=== PATIENT | female | born 1960 | race American Indian/Alaskan Native ===

== ENCOUNTER 2019-03-16 12:28 | Inpatient (IN) | payer MEDICARE ==
[2019-03-16] MEDS ORDERED: DEXTROSE 50% IN WATER (25GM) 50 ML SYRINGE IV PRN (13:25)
[2019-03-16] MEDS ORDERED: methylPREDNISolone Sod Succinate 125 MG/2 ML INJ IV ONE (15:00)
[2019-03-16 15:37] LABS: Basophils % (Auto) 0.3 % (0.0-1.8); Eosinophils # (Auto) 0.1 K/mm3 (0.0-0.4); Eosinophils % (Auto) 1.3 % (0.0-4.3); Hematocrit 24.3 % (30.3-42.9); Hemoglobin 7.4 gm/dl (10.1-14.3); Lymphocytes # (Auto) 0.8 K/mm3 (1.2-5.4); Lymphocytes % (Auto) 11.6 % (13.4-35.0); Mean Corpuscular HGB Conc 30 % (30-34); Mean Corpuscular Volume 77 fl (79-97); Monocytes # (Auto) 0.5 K/mm3 (0.0-0.8); Monocytes % (Auto) 8.2 % (0.0-7.3); Platelet Count 277 K/mm3 (140-440); Red Blood Count 3.17 M/mm3 (3.65-5.03)
[2019-03-16 15:38] LABS: Red Cell Distribution Width 20.5 % (13.2-15.2)
[2019-03-16 15:59] LABS: Albumin 2.7 g/dL (3.9-5); BUN/Creatinine Ratio 14; Blood Urea Nitrogen 10 mg/dL (7-17); Calcium 8.7 mg/dL (8.4-10.2); Hemolysis Index 13
[2019-03-16 16:06] LABS: Alanine Aminotransferase < 5 units/L (7-56)
[2019-03-16] MEDS: MORPHINE 30 MG ER TAB PO SCH ×2 (16:07→21:37)
[2019-03-16] MEDS: HYDROmorphone 1 MG/1 ML INJ IV PRN ×2 (16:12→20:16)
[2019-03-16 16:20] LABS: INR 8.32 (0.87-1.13)
[2019-03-16] MEDS ORDERED: WARFARIN 2.5 MG TAB PO SCH (17:00)
[2019-03-16] MEDS ORDERED: WARFARIN 10 MG TAB PO SCH (17:00)
[2019-03-16] MEDS ORDERED: WARFARIN NO DOSE TODAY PO ONE (17:00)
[2019-03-16] MEDS: INSULIN REGULAR, HUMAN 100 UNITS/1 ML SUB-Q SCH ×2 (17:01→21:33)
[2019-03-16] MEDS: MAGIC MOUTHWASH 30ML PO SCH ×2 (17:01→21:33)
[2019-03-16] MEDS: D5W/0.45% NACL 1,000 ML IV SCH (17:02)
--- NOTE | 2019-03-16 19:35 | Cat Scan Report ---
CT abdomen pelvis wo con INDICATION: PELVIC PAIN. TECHNIQUE: All CT scans at this location are performed using CT dose reduction for ALARA by means of automated e xposure control. COMPARISON: 06/04/2015 FINDINGS: Lung bases are clear of acute disease. Moderate-sized hiatal hernia. Cholecystectomy. Liver, spleen, pancreas, kidneys and adrenals are grossly negative on this noncontrast exam. IVC filter in position. Abdominal aorta is normal in size. No adenopathy. Pelvis Urinary bladder and distal ureters are negative. Uterus is absent. 2.3 cm left ovarian cyst. No free fluid. IMPRESSION: 1. 2.3 cm left ovarian cyst. 2. Otherwise, no acute abnormalities. Signer Name: Rosendo Rowell MD Signed: 03/16/2019 7:31 PM Workstation Name: [id number]
--- NOTE | 2019-03-16 21:12 | History and Physical Report ---
History of Present Illness Date of examination: 03/16/19 Date of admission: 03/16/19 13:56 Chief complaint: Generalized fatigue, intractable pain, Lupus flare. History of present illness: Patient presented to the office , with CC of generalized weakness, diffuse joint pains, in part, due to SLE flare up.Due to the fact, that patient was too weak, to manage this at home, she is now admitted to the hospital, for sxs management/control.She will get hydration, pain control, steroid.patient was on coumadin, for hx of DVT, and INR today, is overtherapeutic, and will be reversed with Vit k, or FFP. Past History Past Medical History: anemia, arthritis, other (LUPUS.) Social history: no significant social history, , lives with family Family history: no significant family history Medications and Allergies Allergies Allergy/AdvReac Type Severity Reaction Status Date / Time Penicillins Allergy Severe Shortness Verified 06/11/15 12:54 of Breath codeine Allergy Unknown Verified 06/11/15 12:54 shellfish derived Allergy Unknown Verified 06/11/15 12:54 Home Medications Medication Instructions Recorded Confirmed Last Taken Type Hydroxychloroquine [Plaquenil] 200 mg PO BID 01/13/13 01/15/18 01/14/18 History Metoprolol [Lopressor TAB] 100 mg PO BID 01/13/13 01/15/18 01/14/18 History Sertraline [Zoloft] 100 mg PO QDAY 01/13/13 01/15/18 01/14/18 History hydroCHLOROthiazide [HCTZ] 12.5 mg PO QDAY 01/13/13 01/15/18 01/14/18 History Pantoprazole [Protonix TAB] 40 mg PO QDAY 05/21/13 01/15/18 01/14/18 History Potassium Chloride [K-Dur] 10 meq PO DAILY 05/21/13 01/15/18 01/14/18 History Metoclopramide [Reglan TAB] 10 mg PO TID #60 tablet 09/04/13 01/15/18 01/14/18 Rx Gabapentin [Gralise] 300 mg PO TID 06/03/15 01/15/18 01/14/18 History Morphine ER [Ms Contin ER] 30 mg PO BID 06/03/15 01/15/18 01/14/18 History Oxycodone HCl/Acetaminophen 10 mg PO Q6H PRN 06/03/15 01/15/18 01/14/18 History [Percocet 10/325 mg] Ondansetron [Zofran Odt] 4 mg PO Q8H PRN #10 tab.rapdis 11/08/15 01/15/18 01/14/18 Rx oxyCODONE /ACETAMINOPHEN [Percocet 1 tab PO Q6HR PRN #20 tablet 03/16/16 01/15/18 01/14/18 Rx 5/325] predniSONE [Deltasone] 15 mg PO DAILY 08/29/16 01/15/18 01/14/18 History Warfarin [Coumadin] 5 mg PO QDAY 08/30/16 01/15/18 01/14/18 History Oxycodone HCl/Acetaminophen 1 each PO Q6HR PRN #60 tablet 09/05/16 01/15/18 01/14/18 Rx [Percocet 10/325 mg] Active Meds: Active Medications Dextrose (D50w (25gm) Syringe) 50 ml IV Q30MIN PRN; Protocol PRN Reason: Hypoglycemia Folic Acid (Folvite) 1 mg PO QDAY [facility] Hydromorphone HCl (Dilaudid) 2 mg IV Q4H PRN PRN Reason: Pain , Severe (7-10) Hydroxychloroquine Sulfate (Plaquenil) 200 mg PO BID [facility] Dextrose/Sodium Chloride (D5/0.45ns) 1,000 mls @ 125 mls/hr IV DIRECT [facility] Last Admin: 03/16/19 17:02 Dose: 125 mls/hr Documented by: Insulin Human Regular (Humulin R) 0 units SUB-Q ACHS [facility]; Protocol Last Admin: 03/16/19 17:01 Dose: Not Given Documented by: Lidocaine HCl (Magic Mouthwash) 5 ml PO TID [facility] Last Admin: 03/16/19 17:01 Dose: Not Given Documented by: Methylprednisolone Sodium Succinate (Solu-Medrol) 40 mg IV Q8HR [facility] Metoclopramide HCl (Reglan) 10 mg PO TID [facility] Miscellaneous Medication (Gabapentin [Gralise]) 300 mg PO TID [facility] Morphine Sulfate (Ms Contin Er) 30 mg PO Q12HR [facility] Last Admin: 03/16/19 16:07 Dose: Not Given Documented by: Pantoprazole Sodium (Protonix) 40 mg PO QDAY [facility] Sertraline HCl (Zoloft) 100 mg PO QDAY [facility] Sodium Chloride (Sodium Chloride Flush Syringe 10 Ml) 10 ml IV BID [facility] Sodium Chloride (Sodium Chloride Flush Syringe 10 Ml) 10 ml IV PRN PRN PRN Reason: LINE FLUSH Review of Systems Constitutional: weight loss, fatigue, weakness, poor appetite, chronic pain Breasts: deferred Psychiatric: anxiety, insomnia, depression Exam - Constitutional Vitals: Temp Pulse Resp BP Pulse Ox 98.3 F 80 19 113/76 96 03/16/19 16:31 03/16/19 16:31 03/16/19 16:31 03/16/19 16:31 03/16/19 16:31 General appearance: Present: mild distress, cachectic - EENT Eyes: Present: PERRL ENT: hearing intact, clear oral mucosa - Neck Neck: Present: supple, normal ROM - Respiratory Respiratory effort: normal Respiratory: bilateral: CTA - Cardiovascular Heart Sounds: Present: S1 & S2. Absent: rub, click - Extremities Extremities: pulses symmetrical, No edema Peripheral Pulses: within normal limits - Abdominal General gastrointestinal: Present: soft, non-tender, non-distended, normal bowel sounds Female genitourinary: Present: deferred - Rectal Rectal Exam: deferred - Integumentary Integumentary: Present: clear, warm, dry - Musculoskeletal Musculoskeletal: gait normal, strength equal bilaterally - Psychiatric Psychiatric: appropriate mood/affect, intact judgment & insight - Neurologic Neurologic: CNII-XII intact, moves all extremities Results - Labs CBC & Chem 7: 03/16/19 15:08 03/16/19 15:08 Labs: Abnormal lab results 03/16/19 03/16/19 03/16/19 Range/Units 15:08 15:08 15:08 RBC 3.17 L (3.65-5.03) M/mm3 Hgb 7.4 L (10.1-14.3) gm/dl Hct 24.3 L (30.3-42.9) % MCV 77 L (79-97) fl MCH 23 L (28-32) pg RDW 20.5 H (13.2-15.2) % Lymph % (Auto) 11.6 L (13.4-35.0) % [place] % (Auto) 8.2 H (0.0-7.3) % Lymph # 0.8 L (1.2-5.4) K/mm3 Seg Neutrophils % 78.6 H (40.0-70.0) % PT 71.0 H (12.2-14.9) Sec. INR 8.32 H* (0.87-1.13) Chloride 107.4 H (98-107) mmol/L ALT < 5 L (7-56) units/L Albumin 2.7 L (3.9-5) g/dL Assessment and Plan - Patient Problems (1) Chronic pain syndrome Current Visit: No Status: Chronic Plan to address problem: pain control. (2) Exacerbation of systemic lupus erythematosus Current Visit: No Status: Acute Plan to address problem: pulse steroid use. 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 (4) Coumadin toxicity Current Visit: Yes Status: Acute Plan to address problem: will reverse.
[2019-03-16] MEDS: methylPREDNISolone Sod Succinate 40 MG/1 ML INJ IV SCH (21:33)
[2019-03-16] MEDS: HYDROXYCHLOROQUINE 200 MG TAB PO SCH (21:33)
[2019-03-16] MEDS ORDERED: DEXTROSE 5% IV ONE (22:00)
[2019-03-16] MEDS ORDERED: WATER SUB-Q ONE (22:00)
[2019-03-16] MEDS ORDERED: DEXTROSE 5% SUB-Q ONE (22:00)
[2019-03-16] MEDS ORDERED: WATER IV ONE (22:00)
[2019-03-16] MEDS ORDERED: PHYTONADIONE SUB-Q ONE (22:00)
[2019-03-16] MEDS ORDERED: PHYTONADIONE 10 MG/1 ML (ADULT ONLY)*INJECTION SUB-Q ONE (22:00)
[2019-03-16] MEDS ORDERED: PHYTONADIONE IV ONE (22:00)
[2019-03-17] MEDS: HYDROmorphone 2 MG/1 ML INJ IV PRN ×5 (01:24→22:15)
[2019-03-17] MEDS: D5W/0.45% NACL 1,000 ML IV SCH ×3 (03:30→20:41)
[2019-03-17] MEDS: methylPREDNISolone Sod Succinate 40 MG/1 ML INJ IV SCH ×3 (05:56→21:11)
[2019-03-17] MEDS: INSULIN REGULAR, HUMAN 100 UNITS/1 ML SUB-Q SCH ×4 (08:57→22:16)
[2019-03-17] MEDS: GABAPENTIN 300 MG CAP PO SCH ×3 (08:57→20:43)
[2019-03-17] MEDS: METOCLOPRAMIDE 10 MG TAB PO SCH ×3 (08:57→20:43)
[2019-03-17] MEDS: MAGIC MOUTHWASH 30ML PO SCH ×3 (08:58→20:42)
[2019-03-17 09:01] LABS: INR 1.7 (0.87-1.13)
[2019-03-17] MEDS: FOLIC ACID 1 MG TAB PO SCH (09:17)
[2019-03-17] MEDS: SERTRALINE 100 MG TAB PO SCH (09:17)
[2019-03-17] MEDS: MORPHINE 30 MG ER TAB PO SCH ×2 (09:17→21:11)
[2019-03-17] MEDS: HYDROXYCHLOROQUINE 200 MG TAB PO SCH ×2 (09:18→21:11)
[2019-03-17] MEDS: PANTOPRAZOLE 40 MG TAB PO SCH (09:18)
--- NOTE | 2019-03-17 19:57 | Progress Note ---
Assessment and Plan - Patient Problems (1) Chronic pain syndrome Current Visit: No Status: Chronic Plan to address problem: pain control. (2) Exacerbation of systemic lupus erythematosus Current Visit: Yes Status: Acute Plan to address problem: pulse steroid use. (3) Gastroparesis diabeticorum Current Visit: Yes Status: Chronic Plan to address problem: supportive. (4) Coumadin toxicity Current Visit: Yes Status: Acute Plan to address problem: will reverse. reversed. (5) Cachexia Current Visit: Yes Status: Acute Plan to address problem: with protien calore malnurishment, present on admission, and will continue with support. Subjective Date of service: 03/17/19 Principal diagnosis: Dehydration/generalized weakness,poor nutrition. Interval history: Patient seen/examined, resting in bed, labs reviewed, case d/w patient.Will continue with current management. Objective - Constitutional Vitals: Vital Signs - 12hr 03/17/19 03/17/19 03/17/19 10:00 11:51 16:47 Temperature 98.3 F 98.4 F Pulse Rate 64 75 Respiratory 18 18 Rate Blood Pressure 111/70 117/76 O2 Sat by Pulse 96 95 94 Oximetry General appearance: Present: mild distress, cachectic, other (protien calore malnurishment with cachectia, present on admission.) - EENT Eyes: PERRL, EOM intact ENT: hearing intact, clear oral mucosa Ears: bilateral: normal - Neck Neck: supple, normal ROM - Respiratory Respiratory effort: normal Respiratory: bilateral: CTA - Breasts Breasts: deferred - Cardiovascular Rhythm: regular Heart Sounds: Present: S1 & S2. Absent: gallop, rub Extremities: pulses intact, No edema, normal color, Full ROM - Gastrointestinal General gastrointestinal: Present: soft, non-tender, non-distended, normal bowel sounds Rectal Exam: deferred - Genitourinary Female genitourinary: deferred - Integumentary Integumentary: clear, warm, dry - Musculoskeletal Musculoskeletal: 1, strength equal bilaterally - Neurologic Neurologic: moves all extremities - Psychiatric Psychiatric: memory intact, appropriate mood/affect, intact judgment & insight - Labs CBC & Chem 7: 03/16/19 15:08 03/16/19 15:08 Labs: Abnormal lab results 03/16/19 03/17/19 03/17/19 Range/Units 21:19 06:00 06:00 PT 20.3 H (12.2-14.9) Sec. INR 1.70 H (0.87-1.13) POC Glucose 172 H (70-105) Iron 14 L (37-170) ug/dL 03/17/19 03/17/19 03/17/19 Range/Units 07:36 11:47 16:39 PT (12.2-14.9) Sec. INR (0.87-1.13) POC Glucose 253 H 165 H 172 H (70-105) Iron (37-170) ug/dL
[2019-03-18] MEDS: HYDROmorphone 2 MG/1 ML INJ IV PRN ×5 (04:01→22:45)
[2019-03-18] MEDS: D5W/0.45% NACL 1,000 ML IV SCH (04:01)
[2019-03-18] MEDS: methylPREDNISolone Sod Succinate 40 MG/1 ML INJ IV SCH ×3 (06:01→21:04)
[2019-03-18] MEDS: INSULIN REGULAR, HUMAN 100 UNITS/1 ML SUB-Q SCH ×4 (08:54→22:46)
[2019-03-18] MEDS: GABAPENTIN 300 MG CAP PO SCH ×3 (08:59→21:03)
[2019-03-18] MEDS: MAGIC MOUTHWASH 30ML PO SCH ×3 (09:00→22:45)
[2019-03-18] MEDS: METOCLOPRAMIDE 10 MG TAB PO SCH ×3 (09:00→21:03)
[2019-03-18 09:49] LABS: INR 1.44 (0.87-1.13)
[2019-03-18] MEDS: SERTRALINE 100 MG TAB PO SCH (12:42)
[2019-03-18] MEDS: PANTOPRAZOLE 40 MG TAB PO SCH (12:42)
[2019-03-18] MEDS: MORPHINE 30 MG ER TAB PO SCH ×2 (12:43→21:04)
[2019-03-18] MEDS: HYDROXYCHLOROQUINE 200 MG TAB PO SCH ×2 (12:43→21:03)
[2019-03-18] MEDS: FOLIC ACID 1 MG TAB PO SCH (12:50)
[2019-03-18] MEDS ORDERED: WARFARIN 2.5 MG TAB PO SCH (17:00)
[2019-03-18] MEDS ORDERED: WARFARIN 2 MG TAB PO SCH (17:00)
[2019-03-18] MEDS ORDERED: WARFARIN 5 MG TAB PO SCH (17:00)
--- NOTE | 2019-03-18 19:52 | Progress Note ---
Assessment and Plan - Patient Problems (1) Chronic pain syndrome Current Visit: No Status: Chronic Plan to address problem: pain control. (2) Exacerbation of systemic lupus erythematosus Current Visit: Yes Status: Acute Plan to address problem: pulse steroid use. (3) Gastroparesis diabeticorum Current Visit: Yes Status: Chronic Plan to address problem: supportive. (4) Coumadin toxicity Current Visit: Yes Status: Acute Plan to address problem: will reverse. reversed. (5) Cachexia Current Visit: Yes Status: Acute Plan to address problem: with gennaro grossmane malnurishment, present on admission, and will continue with support. Subjective Date of service: 03/18/19 Principal diagnosis: Dehydration/generalized weakness,poor nutrition. Interval history: Patient seen/examined, resting in bed, labs reviewed, case d/w patient.Will continue with current management. Patient seen/examined, resting in bed,, still in pain, and weakness. Objective - Constitutional Vitals: Vital Signs - 12hr 03/18/19 03/18/19 08:38 11:01 Temperature 97.3 F L Pulse Rate 63 Respiratory 20 Rate Blood Pressure 111/71 O2 Sat by Pulse 94 95 Oximetry General appearance: Present: mild distress, cachectic - EENT Eyes: PERRL, EOM intact ENT: hearing intact, clear oral mucosa Ears: bilateral: normal - Neck Neck: supple, normal ROM - Respiratory Respiratory effort: normal Respiratory: bilateral: CTA - Breasts Breasts: deferred - Cardiovascular Rhythm: regular Heart Sounds: Present: S1 & S2. Absent: gallop, rub Extremities: pulses intact, No edema, normal color, Full ROM - Gastrointestinal General gastrointestinal: Present: soft, non-tender, non-distended, normal bowel sounds Rectal Exam: deferred - Genitourinary Female genitourinary: deferred - Integumentary Integumentary: clear, warm, dry - Musculoskeletal Musculoskeletal: 1, strength equal bilaterally - Neurologic Neurologic: moves all extremities - Psychiatric Psychiatric: memory intact, appropriate mood/affect, intact judgment & insight - Labs CBC & Chem 7: 03/16/19 15:08 03/16/19 15:08 Labs: Abnormal lab results 03/17/19 03/18/19 03/18/19 Range/Units 21:34 08:20 09:14 PT 17.8 H (12.2-14.9) Sec. INR 1.44 H (0.87-1.13) POC Glucose 237 H 404 H (70-105) 03/18/19 03/18/19 Range/Units 11:21 16:57 PT (12.2-14.9) Sec. INR (0.87-1.13) POC Glucose 163 H 182 H (70-105)
[2019-03-18] MEDS: SODIUM CHLORIDE 0.45% 1000 ML 1,000 ML IV SCH (22:46)
[2019-03-19] MEDS: HYDROmorphone 2 MG/1 ML INJ IV PRN ×5 (03:31→19:50)
[2019-03-19] MEDS: SODIUM CHLORIDE 0.45% 1000 ML 1,000 ML IV SCH ×3 (05:48→21:26)
[2019-03-19] MEDS: methylPREDNISolone Sod Succinate 40 MG/1 ML INJ IV SCH ×3 (05:48→21:29)
[2019-03-19 06:40] LABS: INR 2.16 (0.87-1.13)
[2019-03-19] MEDS: INSULIN REGULAR, HUMAN 100 UNITS/1 ML SUB-Q SCH ×4 (08:13→22:56)
[2019-03-19] MEDS: METOCLOPRAMIDE 10 MG TAB PO SCH ×3 (08:28→19:55)
[2019-03-19] MEDS: GABAPENTIN 300 MG CAP PO SCH ×3 (08:28→19:54)
[2019-03-19] MEDS: MAGIC MOUTHWASH 30ML PO SCH ×3 (08:28→19:55)
[2019-03-19] MEDS: PANTOPRAZOLE 40 MG TAB PO SCH (10:04)
[2019-03-19] MEDS: HYDROXYCHLOROQUINE 200 MG TAB PO SCH ×2 (10:05→21:29)
[2019-03-19] MEDS: FOLIC ACID 1 MG TAB PO SCH (10:05)
[2019-03-19] MEDS: MORPHINE 30 MG ER TAB PO SCH ×2 (10:05→21:28)
[2019-03-19] MEDS: SERTRALINE 100 MG TAB PO SCH (10:05)
[2019-03-19] MEDS ORDERED: WARFARIN 2.5 MG TAB PO SCH (17:00)
--- NOTE | 2019-03-19 21:47 | Progress Note ---
Assessment and Plan - Patient Problems (1) Chronic pain syndrome Current Visit: No Status: Chronic Plan to address problem: pain control. (2) Exacerbation of systemic lupus erythematosus Current Visit: Yes Status: Acute Plan to address problem: pulse steroid use. (3) Gastroparesis diabeticorum Current Visit: Yes Status: Chronic Plan to address problem: supportive. (4) Coumadin toxicity Current Visit: Yes Status: Acute Plan to address problem: will reverse. reversed. (5) Cachexia Current Visit: Yes Status: Acute Plan to address problem: with protien calore malnurishment, present on admission, and will continue with support. Subjective Date of service: 03/19/19 Principal diagnosis: Dehydration/generalized weakness,poor nutrition. Interval history: Patient seen/examined, resting in bed, labs reviewed, case d/w patient.Will continue with current management. Patient seen/examined, resting in bed,, still in pain, and weakness. patient seen/examined, resting in bed, records reviewed, case d/w patient. Ct of the abd/pelvics with ovarian cystic lesion.patient c/o slight improvement , overall.will continue , with current management , for couple more days, and jadiel down steroid, as she prepares to go home. Objective - Constitutional Vitals: Vital Signs - 12hr 03/19/19 03/19/19 03/19/19 11:37 17:25 21:33 Temperature 98.3 F 98.3 F Pulse Rate 65 70 Respiratory 22 22 Rate Blood Pressure 127/81 107/69 O2 Sat by Pulse 94 95 95 Oximetry General appearance: Present: mild distress, cachectic - EENT Eyes: PERRL, EOM intact ENT: hearing intact, clear oral mucosa Ears: bilateral: normal - Neck Neck: supple, normal ROM - Respiratory Respiratory effort: normal Respiratory: bilateral: CTA - Breasts Breasts: deferred - Cardiovascular Rhythm: regular Heart Sounds: Present: S1 & S2. Absent: gallop, rub Extremities: pulses intact, No edema, normal color, Full ROM - Gastrointestinal General gastrointestinal: Present: soft, non-tender, non-distended, normal bowel sounds Rectal Exam: deferred - Genitourinary Female genitourinary: deferred - Integumentary Integumentary: clear, warm, dry - Musculoskeletal Musculoskeletal: 1, strength equal bilaterally - Neurologic Neurologic: moves all extremities - Psychiatric Psychiatric: memory intact, appropriate mood/affect, intact judgment & insight - Labs CBC & Chem 7: 03/16/19 15:08 03/16/19 15:08 Labs: Abnormal lab results 03/18/19 03/19/19 03/19/19 Range/Units 22:05 06:05 08:06 PT 24.5 H (12.2-14.9) Sec. INR 2.16 H (0.87-1.13) POC Glucose 167 H 128 H (70-105) 03/19/19 03/19/19 Range/Units 11:45 17:37 PT (12.2-14.9) Sec. INR (0.87-1.13) POC Glucose 250 H 169 H (70-105)
[2019-03-20] MEDS: HYDROmorphone 2 MG/1 ML INJ IV PRN ×6 (00:03→21:25)
[2019-03-20] MEDS: methylPREDNISolone Sod Succinate 40 MG/1 ML INJ IV SCH ×3 (05:27→21:29)
[2019-03-20] MEDS: SODIUM CHLORIDE 0.45% 1000 ML 1,000 ML IV SCH ×3 (05:27→21:31)
[2019-03-20] MEDS: INSULIN REGULAR, HUMAN 100 UNITS/1 ML SUB-Q SCH ×4 (07:47→22:37)
[2019-03-20] MEDS: MAGIC MOUTHWASH 30ML PO SCH ×3 (07:48→21:54)
[2019-03-20] MEDS: GABAPENTIN 300 MG CAP PO SCH ×3 (07:49→21:29)
[2019-03-20] MEDS: METOCLOPRAMIDE 10 MG TAB PO SCH ×3 (07:49→21:30)
[2019-03-20 08:20] LABS: INR 2.92 (0.87-1.13)
[2019-03-20 08:29] LABS: BUN/Creatinine Ratio 37; Blood Urea Nitrogen 26 mg/dL (7-17); Calcium 7.8 mg/dL (8.4-10.2); Hematocrit 29.3 % (30.3-42.9); Hemolysis Index 1; Mean Corpuscular HGB Conc 31 % (30-34); Mean Corpuscular Volume 78 fl (79-97); Platelet Count 299 K/mm3 (140-440); Red Blood Count 3.76 M/mm3 (3.65-5.03)
[2019-03-20 08:43] LABS: Red Cell Distribution Width 21.8 % (13.2-15.2)
[2019-03-20] MEDS: FOLIC ACID 1 MG TAB PO SCH (10:10)
[2019-03-20] MEDS: HYDROXYCHLOROQUINE 200 MG TAB PO SCH ×2 (10:10→21:30)
[2019-03-20] MEDS: PANTOPRAZOLE 40 MG TAB PO SCH (10:10)
[2019-03-20] MEDS: MORPHINE 30 MG ER TAB PO SCH ×2 (10:10→21:29)
[2019-03-20] MEDS: SERTRALINE 100 MG TAB PO SCH (10:11)
[2019-03-20 10:39] LABS: Basophils % (Manual) 0 % (0.0-1.8); Eosinophils % (Manual) 0 % (0.0-4.3); Total Cells Counted 100
[2019-03-20 10:40] LABS: Giant Platelets Few
[2019-03-20 10:42] LABS: Tear Drop Cells 1+
[2019-03-20 10:43] LABS: Hypochromasia Few
[2019-03-20 10:45] LABS: Ovalocytes Few; Platelet Estimate Consistent w Auto
[2019-03-20] MEDS ORDERED: WARFARIN 1 MG TAB PO SCH (17:00)
--- NOTE | 2019-03-20 17:01 | Progress Note ---
Assessment and Plan - Patient Problems (1) Chronic pain syndrome Current Visit: No Status: Chronic Plan to address problem: pain control. (2) Exacerbation of systemic lupus erythematosus Current Visit: Yes Status: Acute Plan to address problem: pulse steroid use. (3) Gastroparesis diabeticorum Current Visit: Yes Status: Chronic Plan to address problem: supportive. (4) Coumadin toxicity Current Visit: Yes Status: Acute Plan to address problem: will reverse. reversed. (5) Cachexia Current Visit: Yes Status: Acute Plan to address problem: with gennaro grossmane malnurishment, present on admission, and will continue with support. Subjective Date of service: 03/20/19 Principal diagnosis: Dehydration/generalized weakness,poor nutrition. Interval history: Patient seen/examined, resting in bed, labs reviewed, case d/w patient.Will continue with current management. Patient seen/examined, resting in bed,, still in pain, and weakness. patient seen/examined, resting in bed, records reviewed, case d/w patient. Ct of the abd/pelvics with ovarian cystic lesion.patient c/o slight improvement , overall.will continue , with current management , for couple more days, and jadiel down steroid, as she prepares to go home. Patient seen/examined, resting in bed, records reviewed, case d/w patient. Will plan D/c this weekend. Objective - Constitutional Vitals: Vital Signs - 12hr 03/20/19 03/20/19 03/20/19 06:21 11:50 15:36 Temperature 98.1 F 98.3 F 98.0 F Pulse Rate 64 76 80 Respiratory 18 20 18 Rate Blood Pressure 135/83 124/88 111/72 O2 Sat by Pulse 94 97 94 Oximetry General appearance: Present: mild distress, well-nourished - EENT Eyes: PERRL, EOM intact ENT: hearing intact, clear oral mucosa Ears: bilateral: normal - Neck Neck: supple, normal ROM - Respiratory Respiratory effort: normal Respiratory: bilateral: CTA - Breasts Breasts: deferred - Cardiovascular Rhythm: regular Heart Sounds: Present: S1 & S2. Absent: gallop, rub Extremities: pulses intact, No edema, normal color, Full ROM - Gastrointestinal General gastrointestinal: Present: soft, non-tender, non-distended, normal bowel sounds Rectal Exam: deferred - Genitourinary Female genitourinary: deferred - Integumentary Integumentary: clear, warm, dry - Musculoskeletal Musculoskeletal: 1, strength equal bilaterally - Neurologic Neurologic: moves all extremities - Psychiatric Psychiatric: memory intact, appropriate mood/affect, intact judgment & insight - Labs CBC & Chem 7: 03/20/19 08:00 03/20/19 08:00 Labs: Abnormal lab results 03/19/19 03/19/19 03/20/19 Range/Units 17:37 22:14 07:46 Hgb (10.1-14.3) gm/dl Hct (30.3-42.9) % MCV (79-97) fl MCH (28-32) pg RDW (13.2-15.2) % Seg Neuts % (Manual) (40.0-70.0) % Lymphocytes % (Manual) (13.4-35.0) % Seg Neutrophils # Man (1.8-7.7) K/mm3 Lymphocytes # (Manual) (1.2-5.4) K/mm3 PT (12.2-14.9) Sec. INR (0.87-1.13) Chloride (98-107) mmol/L Carbon Dioxide (22-30) mmol/L BUN (7-17) mg/dL Glucose (65-100) mg/dL POC Glucose 169 H 150 H 120 H (70-105) Calcium (8.4-10.2) mg/dL 03/20/19 03/20/19 03/20/19 Range/Units 08:00 08:00 08:00 Hgb 9.0 L (10.1-14.3) gm/dl Hct 29.3 L (30.3-42.9) % MCV 78 L (79-97) fl MCH 24 L (28-32) pg RDW 21.8 H (13.2-15.2) % Seg Neuts % (Manual) 95.0 H (40.0-70.0) % Lymphocytes % (Manual) 4.0 L (13.4-35.0) % Seg Neutrophils # Man 8.9 H (1.8-7.7) K/mm3 Lymphocytes # (Manual) 0.4 L (1.2-5.4) K/mm3 PT 31.1 H (12.2-14.9) Sec. INR 2.92 H (0.87-1.13) Chloride 107.2 H (98-107) mmol/L Carbon Dioxide 21 L (22-30) mmol/L BUN 26 H (7-17) mg/dL Glucose 118 H (65-100) mg/dL POC Glucose (70-105) Calcium 7.8 L (8.4-10.2) mg/dL 03/20/19 03/20/19 Range/Units 11:57 16:56 Hgb (10.1-14.3) gm/dl Hct (30.3-42.9) % MCV (79-97) fl MCH (28-32) pg RDW (13.2-15.2) % Seg Neuts % (Manual) (40.0-70.0) % Lymphocytes % (Manual) (13.4-35.0) % Seg Neutrophils # Man (1.8-7.7) K/mm3 Lymphocytes # (Manual) (1.2-5.4) K/mm3 PT (12.2-14.9) Sec. INR (0.87-1.13) Chloride (98-107) mmol/L Carbon Dioxide (22-30) mmol/L BUN (7-17) mg/dL Glucose (65-100) mg/dL POC Glucose 289 H 163 H (70-105) Calcium (8.4-10.2) mg/dL
[2019-03-21] MEDS: HYDROmorphone 2 MG/1 ML INJ IV PRN ×6 (01:58→22:43)
[2019-03-21] MEDS: methylPREDNISolone Sod Succinate 40 MG/1 ML INJ IV SCH ×3 (05:56→21:29)
[2019-03-21] MEDS: SODIUM CHLORIDE 0.45% 1000 ML 1,000 ML IV SCH ×3 (05:57→21:34)
[2019-03-21 06:43] LABS: INR 4.09 (0.87-1.13)
[2019-03-21] MEDS: INSULIN REGULAR, HUMAN 100 UNITS/1 ML SUB-Q SCH ×3 (10:02→17:24)
[2019-03-21] MEDS: PANTOPRAZOLE 40 MG TAB PO SCH (10:08)
[2019-03-21] MEDS: SERTRALINE 100 MG TAB PO SCH (10:08)
[2019-03-21] MEDS: HYDROXYCHLOROQUINE 200 MG TAB PO SCH ×2 (10:08→21:28)
[2019-03-21] MEDS: MORPHINE 30 MG ER TAB PO SCH ×2 (10:08→21:27)
[2019-03-21] MEDS: FOLIC ACID 1 MG TAB PO SCH (10:09)
[2019-03-21] MEDS: GABAPENTIN 300 MG CAP PO SCH ×3 (10:12→21:28)
[2019-03-21] MEDS: MAGIC MOUTHWASH 30ML PO SCH ×3 (10:12→21:28)
[2019-03-21] MEDS: METOCLOPRAMIDE 10 MG TAB PO SCH ×3 (10:12→21:27)
[2019-03-21] MEDS ORDERED: WARFARIN NO DOSE TODAY PO ONE (17:00)
--- NOTE | 2019-03-21 20:07 | Progress Note ---
Assessment and Plan - Patient Problems (1) Chronic pain syndrome Current Visit: No Status: Chronic Plan to address problem: pain control. (2) Exacerbation of systemic lupus erythematosus Current Visit: Yes Status: Acute Plan to address problem: pulse steroid use. (3) Gastroparesis diabeticorum Current Visit: Yes Status: Chronic Plan to address problem: supportive. (4) Coumadin toxicity Current Visit: Yes Status: Acute Plan to address problem: will reverse. reversed. (5) Cachexia Current Visit: Yes Status: Acute Plan to address problem: with gennaro moreno malnurishment, present on admission, and will continue with support. Subjective Date of service: 03/21/19 Principal diagnosis: Dehydration/generalized weakness,poor nutrition. Interval history: Patient seen/examined, resting in bed, labs reviewed, case d/w patient.Will continue with current management. Patient seen/examined, resting in bed,, still in pain, and weakness. patient seen/examined, resting in bed, records reviewed, case d/w patient. Ct of the abd/pelvics with ovarian cystic lesion.patient c/o slight improvement , overall.will continue , with current management , for couple more days, and jadiel down steroid, as she prepares to go home. Patient seen/examined, resting in bed, records reviewed, case d/w patient. Will plan D/c this weekend. Patient seen/examined, resting in bed, discussed up in chair, PT/OT.labs ordered. D/C in place for the next 48hrs, with home health. Objective - Constitutional Vitals: Vital Signs - 12hr 03/21/19 03/21/19 03/21/19 09:58 11:40 16:58 Temperature 98.2 F 98.4 F Pulse Rate 74 72 Respiratory 16 16 Rate Blood Pressure 111/76 119/86 112/68 O2 Sat by Pulse 95 97 Oximetry General appearance: Present: mild distress, well-nourished - EENT Eyes: PERRL, EOM intact ENT: hearing intact, clear oral mucosa Ears: bilateral: normal - Neck Neck: supple, normal ROM - Respiratory Respiratory effort: normal Respiratory: bilateral: CTA - Breasts Breasts: deferred - Cardiovascular Rhythm: regular Heart Sounds: Present: S1 & S2. Absent: gallop, rub Extremities: pulses intact, No edema, normal color, Full ROM - Gastrointestinal General gastrointestinal: Present: soft, non-tender, non-distended, normal bowel sounds Rectal Exam: deferred - Genitourinary Female genitourinary: deferred - Integumentary Integumentary: clear, warm, dry - Musculoskeletal Musculoskeletal: 1, strength equal bilaterally - Neurologic Neurologic: moves all extremities - Psychiatric Psychiatric: memory intact, appropriate mood/affect, intact judgment & insight - Labs CBC & Chem 7: 03/20/19 08:00 03/20/19 08:00 Labs: Abnormal lab results 03/20/19 03/21/19 03/21/19 Range/Units 21:49 06:00 11:25 PT 40.7 H (12.2-14.9) Sec. INR 4.09 H (0.87-1.13) POC Glucose 138 H 182 H (70-105) 03/21/19 Range/Units 16:13 PT (12.2-14.9) Sec. INR (0.87-1.13) POC Glucose 146 H (70-105)
[2019-03-22] MEDS: INSULIN REGULAR, HUMAN 100 UNITS/1 ML SUB-Q SCH ×5 (00:20→23:39)
[2019-03-22] MEDS ORDERED: ALTEPLASE 2 MG INJ IV ONE (00:33)
[2019-03-22] MEDS ORDERED: WATER FOR INJ Sterile (PF) 10 ML ONE (01:01)
[2019-03-22] MEDS: HYDROmorphone 2 MG/1 ML INJ IV PRN ×5 (02:55→20:10)
[2019-03-22] MEDS: methylPREDNISolone Sod Succinate 40 MG/1 ML INJ IV SCH ×3 (05:53→23:38)
[2019-03-22] MEDS: GABAPENTIN 300 MG CAP PO SCH ×3 (08:26→20:09)
[2019-03-22] MEDS: MAGIC MOUTHWASH 30ML PO SCH ×3 (08:26→20:09)
[2019-03-22] MEDS: METOCLOPRAMIDE 10 MG TAB PO SCH ×3 (08:26→20:09)
[2019-03-22 08:31] LABS: INR 3.52 (0.87-1.13)
[2019-03-22] MEDS: SERTRALINE 100 MG TAB PO SCH (09:50)
[2019-03-22] MEDS: HYDROXYCHLOROQUINE 200 MG TAB PO SCH ×2 (09:51→23:21)
[2019-03-22] MEDS: PANTOPRAZOLE 40 MG TAB PO SCH (09:51)
[2019-03-22] MEDS: MORPHINE 30 MG ER TAB PO SCH ×2 (09:51→23:20)
[2019-03-22] MEDS: SODIUM CHLORIDE 0.45% 1000 ML 1,000 ML IV SCH ×2 (09:52→23:22)
[2019-03-22] MEDS: FOLIC ACID 1 MG TAB PO SCH (09:52)
[2019-03-22] MEDS ORDERED: WARFARIN NO DOSE TODAY PO ONE (17:00)
--- NOTE | 2019-03-22 18:01 | Discharge Summary ---
Providers - Providers Date of Admission: 03/16/19 13:56 Date of discharge: 03/23/19 Attending physician: DUKE FARIAS 03/21/19 19:57 Physical Therapy Evaluation and Treat [CONS] Routine Comment: up in bed twice daily. Reason For Exam: deconditioned. Primary care physician: DUKE FARIAS Hospitalization Reason for admission: Dehydration, generalized weakness. Condition: Fair Hospital course: Patient seen/examined,resting in bed, records reviewed, case d/w patient.C/o feels a bit better.Will d/c home tomorrow. Disposition: DC- TO HOME OR SELFCARE - Discharge Diagnoses (1) Chronic pain syndrome Status: Chronic (2) Exacerbation of systemic lupus erythematosus Status: Acute (3) Gastroparesis diabeticorum Status: Chronic (4) Coumadin toxicity Status: Resolved (5) Cachexia Status: Chronic Core Measure Documentation - Palliative Care Palliative Care/ Comfort Measures: Not Applicable - Core Measures Any of the following diagnoses?: history only Exam - Constitutional Vitals: Temp Pulse Resp BP Pulse Ox 98.1 F 75 16 119/76 94 03/22/19 11:47 03/22/19 11:47 03/22/19 11:47 03/22/19 11:47 03/22/19 11:47 General appearance: Present: well-nourished - EENT Eyes: Present: PERRL ENT: hearing intact, clear oral mucosa - Neck Neck: Present: supple, normal ROM - Respiratory Respiratory effort: normal Respiratory: bilateral: CTA - Cardiovascular Heart Sounds: Present: S1 & S2. Absent: rub, click - Extremities Extremities: pulses symmetrical, No edema Peripheral Pulses: within normal limits - Abdominal General gastrointestinal: Present: soft, non-tender, non-distended, normal bowel sounds Female genitourinary: Present: deferred - Rectal Rectal Exam: deferred - Integumentary Integumentary: Present: clear, warm, dry - Musculoskeletal Musculoskeletal: gait normal, strength equal bilaterally - Psychiatric Psychiatric: appropriate mood/affect, intact judgment & insight - Neurologic Neurologic: CNII-XII intact, moves all extremities Plan Activity: up only with assistance Weight Bearing Status: Weight Bear as Tolerated Diet: regular Follow up with: DUKE FARIAS DO [Primary Care Provider] - 7 Days Forms: Warfarin Discharge Instruction
[2019-03-23] MEDS: HYDROmorphone 2 MG/1 ML INJ IV PRN ×3 (01:31→10:00)
[2019-03-23] MEDS: methylPREDNISolone Sod Succinate 40 MG/1 ML INJ IV SCH (05:32)
[2019-03-23 06:23] LABS: INR 3.06 (0.87-1.13)
[2019-03-23] MEDS: SODIUM CHLORIDE 0.45% 1000 ML 1,000 ML IV SCH (07:28)
[2019-03-23] MEDS: MAGIC MOUTHWASH 30ML PO SCH (09:19)
[2019-03-23] MEDS: INSULIN REGULAR, HUMAN 100 UNITS/1 ML SUB-Q SCH ×2 (09:19→12:39)
[2019-03-23] MEDS: METOCLOPRAMIDE 10 MG TAB PO SCH (09:19)
[2019-03-23] MEDS: GABAPENTIN 300 MG CAP PO SCH (09:19)
[2019-03-23] MEDS: FOLIC ACID 1 MG TAB PO SCH (09:59)
[2019-03-23] MEDS: SERTRALINE 100 MG TAB PO SCH (10:00)
[2019-03-23] MEDS ORDERED: NEOMY 3.5 MG/BACIT 400 UNITS/POLY B 5000 UNITS/GM OINT PACKET TP ONE ×2 (10:00→12:20)
[2019-03-23] MEDS: PANTOPRAZOLE 40 MG TAB PO SCH (10:00)
[2019-03-23] MEDS: HYDROXYCHLOROQUINE 200 MG TAB PO SCH (10:00)
[2019-03-23] MEDS: MORPHINE 30 MG ER TAB PO SCH (11:59)
[2019-03-23 12:18] VITALS: BP 145/91
== END 2019-03-23 14:10 | disposition home health service (06) | DRG 545 ==
LOC: 3A 12:28 → UNDOADMIN 12:28 → 3A 13:56
PROVIDERS: ADMIT Internal Medicine Hematology & Oncology; ATTEND Internal Medicine Hematology & Oncology
DX: M32.9 Systemic lupus erythematosus, unspecified (principal); E43 Unspecified severe protein-calorie malnutrition; R64 Cachexia; E11.43 Type 2 diabetes mellitus with diabetic autonomic (poly)neuropathy; T45.515A Adverse effect of anticoagulants, initial encounter; G89.4 Chronic pain syndrome; K31.84 Gastroparesis; D64.9 Anemia, unspecified; M19.90 Unspecified osteoarthritis, unspecified site; Z88.6 Allergy status to analgesic agent; Z88.0 Allergy status to penicillin; Z91.013 Allergy to seafood; Z86.718 Personal history of other venous thrombosis and embolism; Z68.34 Body mass index [BMI] 34.0-34.9, adult; Y92.89 Other specified places as the place of occurrence of the external cause
CPT/HCPCS: 36415; 74176; 80048; 80053; 82728; 82962; 83540; 85007; 85025; 85610; 87116; G0378; A6250; J1170; J1642; J1815; J2920; J2930; J2997; J3430; J7030